=== PATIENT | male | born 1985 | race Caucasian/White ===

== ENCOUNTER 2018-09-08 17:05 | Emergency (ER) | payer MEDICAID ==
[~2018-09-08] VITALS: Ht 152.4 cm; Wt 102.1 kg
[~2018-09-08 17:05] MED LIST: ATOR10TA PO; LEVO150T8 PO; OLAN10TA3 PO; SERT25TA5 PO; WARF-68 PO
[2018-09-08] MEDS ORDERED: LORAZEPAM 1 MG TABLET PO ONE (17:30)
[2018-09-08] MEDS ORDERED: ACETAMINOPHEN 325 MG TABLET PO ONE (17:30)
[2018-09-08] MEDS ORDERED: LORAZEPAM 1 MG TABLET ONE (17:31)
[2018-09-08] MEDS ORDERED: ACETAMINOPHEN 325 MG TABLET ONE (17:32)
--- NOTE | 2018-09-08 17:32 | NUR ---
PT [place] Officer [place] [id number] on 2200 "called 911 he was going to jump into moving traffic", pt is aox4, not in respiratory distress, v/s stable.
--- NOTE | 2018-09-08 17:50 | NUR ---
Ms. Davis PA at bedside for eval.
[2018-09-08 18:15] LABS: BASOPHILS # (AUTO) 0.1 /CMM (0.0-0.2); BASOPHILS % (AUTO) 1.6 % (0.0-2.0); EOSINOPHILS % (AUTO) 4.9 % (0.0-6.0); HEMATOCRIT 29 % (39-51); HEMOGLOBIN 9.9 g/dL (13.5-17.5); LYMPHOCYTES # (AUTO) 1.1 /CMM (0.8-4.8); LYMPHOCYTES % (AUTO) 19.5 % (20.0-44.0); MEAN CORPUSCULAR HGB CONC 34 g/dl (31.0-36.0); MEAN CORPUSCULAR VOLUME 88 fL (80-96); MONOCYTES # (AUTO) 0.5 /CMM (0.1-1.30); MONOCYTES % (AUTO) 8.9 % (2.0-12.0); NEUTROPHILS # (AUTO) 3.6 /CMM (1.8-8.9); NEUTROPHILS % (AUTO) 65.1 % (43.0-81.0); PLATELET COUNT (AUTO) 159 /CMM (150-450); RED BLOOD CELL COUNT(AUTO) 3.35 MIL/uL (4.5-6.0); WHITE BLOOD COUNT (AUTO) 5.6 K/uL (4.3-11.0)
[2018-09-08 18:24] LABS: POTASSIUM 4.5 mmol/L (3.5-5.1)
[2018-09-08 18:51] LABS: APPEARANCE,URINE Clear (CLEAR); BILIRUBIN,URINE Negative (NEGATIVE); BLOOD, URINE Trace-intact Ery/uL (NEGATIVE); COLOR,URINE Yellow (YELLOW); KETONES,URINE Negative (NEGATIVE); LEUKOCYTE ESTERASE ,URINE Negative (NEGATIVE); NITRITE, URINE Negative (NEGATIVE); PH,URINE 5.5 (5.0-8.0); PROTEIN,URINE Negative (NEGATIVE); UGLUCOSE Negative (NEGATIVE); UROBILINOGEN,URINE 0.2 EU/dL (0.2)
[2018-09-08 19:00] LABS: BACTERIA,URINE None seen /HPF (None Seen); RBC,URINE 2-3/HPF /HPF (0-2); SQUAMOUS EPITHELIAL CELL,UR Rare /HPF (None Seen); URINE AMORPHOUS URATE Few /HPF (None Seen); WBC,URINE 0-2 /HPF (0-3)
--- NOTE | 2018-09-08 19:31 | NUR ---
ENDORSED TO [facility] FOR SARITHA, V/S STABLE, NOT IN RESPIRATORY DISTRESS.
[2018-09-08 20:29] LABS: ACETAMINOPHEN < 0 ug/ml (10-30); ALANINE AMINOTRANSFERASE 42 U/L (12-78); ALBUMIN 3.5 g/dL (3.4-5.0); ALCOHOL, BLOOD < 3 mg/dL (0-0); ALKALINE PHOSPHATASE 68 U/L (46-116); ASPARTATE AMINOTRANSFERASE 41 U/L (15-37); BILIRUBIN,TOTAL 0.1 mg/dL (0.2-1.0); SALICYLATE 0.9 mg/dL (2.8-20.0); TOTAL PROTEIN, SERUM 7.3 g/dL (6.4-8.2)
[2018-09-08] MEDS ORDERED: ENOXAPARIN SODIUM 60 MG/0.6 ML DISP.SYRIN SQ ONE ×2 (20:58→21:00)
[2018-09-08] MEDS ORDERED: ENOXAPARIN SODIUM 40 MG/0.4 ML DISP.SYRIN SQ ONE (20:58)
[2018-09-08 21:12] LABS: VALPROIC ACID 20 ug/mL (50-100)
--- NOTE | 2018-09-09 01:21 | NUR ---
PT ACCEPTED TO [facility]. # FOR REPORT [phone]. DR PUGA.
--- NOTE | 2018-09-09 01:32 | NUR ---
[facility] CALLED FOR TRANSPORT. ETA [id number] TRIP#[id number]
[2018-09-09 03:32] VITALS: BP 130/71
--- NOTE | 2018-09-09 03:33 | NUR ---
REPORT GIVEN TO SALONI
--- NOTE | 2018-09-09 03:39 | NUR ---
REPORT GIVEN TO EMT FOR TRANSFER
== END 2018-09-09 03:41 ==
LOC: ER 17:07
DX: R45.851 Suicidal ideations (principal); F31.9 Bipolar disorder, unspecified; E03.9 Hypothyroidism, unspecified; I38 Endocarditis, valve unspecified; G40.909 Epilepsy, unspecified, not intractable, without status epilepticus; F17.200 Nicotine dependence, unspecified, uncomplicated; R07.89 Other chest pain; I25.2 Old myocardial infarction; I10 Essential (primary) hypertension; E11.9 Type 2 diabetes mellitus without complications; Z98.890 Other specified postprocedural states; Z88.6 Allergy status to analgesic agent; Z79.899 Other long term (current) drug therapy; Z79.01 Long term (current) use of anticoagulants
CPT/HCPCS: 36415; 71045-TC; 80048-TC; 80076-TC; 80164-TC; 80305; 81000-TC; 84484-TC; 85025-TC; 85730-TC; A4606; G0480; J1650; Z7610

== ENCOUNTER 2019-06-22 22:13 | Inpatient (IN) | payer MEDICAID ==
[~2019-06-22] VITALS: Ht 175.3 cm; Wt 83.5 kg
[2019-06-22 22:15] VITALS: BP 126/75
--- NOTE | 2019-06-22 22:30 | NUR ---
ADMISSION NOTE. PATIENT DIRECT ADMISSION FROM [facility]. FOR CP UNDER DR. RIVERA. PATIENT SEEN. PATIENT HAS HX OF HOMELESSNESS BUT IS DRESSED IN BOWLER SHIRT AND VILLA ;PANTS AND APPEARS CLEAN. PATIENT REPORTS STILL HAVING SOME CP IN MID STERNUM THAT RADIATES TO LEFT ARM. PATIENT ASKING FOR DOSE OF MORPHINE. PATIENT REPORTS PAIN BUT IS AMBULATING AND HAS NO FACIAL GRIMACING OR DISTRESS WITH AMBULATION, ADL. RATES CP 6/10. PATIENT REPORTS HE HASNT TAKEN HIS SEIZURE MEDICATION FOR ONE MONTH NOW. ALSO STATES HE HAS NOT HAD HIS COUMADIN IN A WHILE FOR HOME MEDICATIONS. ADMISSION INTERVIEW CONDUCTED PATIENT PLACED ON TELEMETRY SR WITH BBB. DR. RIVERA ON HIS WAY TO SEE PATIENT AT THE BEDSIDE.
[2019-06-22] MEDS ORDERED: LEVO175T7 PO (22:59)
[2019-06-22] MEDS ORDERED: BENA20TA9 PO (22:59)
[2019-06-22] MEDS ORDERED: WARF5TAB77 PO (22:59)
[2019-06-22] MEDS ORDERED: METO25TA6 PO (22:59)
[2019-06-22] MEDS ORDERED: MORPHINE SULFATE INJ 2 MG/ML DISP.SYRIN IM PRN (23:30)
[2019-06-23] MEDS ORDERED: MAGNESIUM HYDROXIDE 30 ML UDC PO PRN (00:30)
[2019-06-23] MEDS ORDERED: ACETAMINOPHEN 325 MG TABLET PO PRN (00:30)
[2019-06-23] MEDS ORDERED: Z GUARD REMEDY 2 OZ OINT TP PRN (00:30)
[2019-06-23] MEDS ORDERED: MAG HYDROX/AL HYDROX/SIMETH 30 ML UDC PO PRN (00:30)
[2019-06-23] MEDS ORDERED: HYDROCODONE/APAP 5/325MG 1 EACH TABLET PO PRN (00:30)
[2019-06-23] MEDS ORDERED: ONDANSETRON HCL/PF 4 MG/2 ML VIAL IVP PRN (00:30)
--- NOTE | 2019-06-23 00:41 | NUR ---
patient refused troponin blood draw. patient refusing trop blood draw. states "I Just got here. I don't want to have that done right now. they can do it in the am." certified dialysis technician states he will reschedule for am.
[2019-06-23 00:45] VITALS: BP 128/70
[2019-06-23] MEDS ORDERED: ENOXAPARIN SODIUM 40 MG/0.4 ML DISP.SYRIN SQ ONE (01:00)
[2019-06-23] MEDS ORDERED: ENOXAPARIN SODIUM 80 MG/0.8 ML DISP.SYRIN SQ ONE (01:00)
--- NOTE | 2019-06-23 06:00 | NUR ---
REFUSED AM LABS. LAB TECHNICIAION REPORTS PATIENT REFUSING MORNIGN BLOOD DRAW. STATES PATIENT STATED" I AM TRYING TO SLEEP COME BACK LATER."
[2019-06-23] MEDS ORDERED: LEVOTHYROXINE SODIUM 175 MCG TABLET PO SCH (07:30)
--- NOTE | 2019-06-23 07:35 | NUR ---
Tele/RN - Assessment Patient in bed awake, A/O x 4, tele shows SR with BBB, no complaints overnight, afebrile, denies chest pain, stable on room air, no c/o shortness of breath. Saline lock on the left hand is patent and intact with no signs of infiltration. Skin is intact, ambulates with steady gait. Labs pending result. Will continue with current medical management.
--- NOTE | 2019-06-23 08:00 | NUR ---
Tele/RN - Notes Patient refused blood draw to be done. Explained the importance but still refused.
[2019-06-23 08:01] VITALS: BP 116/68
[2019-06-23 08:05] VITALS: BP 116/68
[2019-06-23] MEDS ORDERED: SERTRALINE HCL 25 MG TABLET PO SCH (09:00)
[2019-06-23] MEDS ORDERED: METOPROLOL TARTRATE 25 MG TABLET PO SCH (09:00)
[2019-06-23] MEDS ORDERED: BENAZEPRIL HCL 20 MG TABLET PO SCH (09:00)
--- NOTE | 2019-06-23 11:00 | NUR ---
MS/RN - Notes Patient non compliant with care, refusing blood draw, hospitalist Greyson Santos NP made aware.
--- NOTE | 2019-06-23 11:25 | NUR ---
Social service consult requested by Dr. Santos for homelessness. Pt. is a 33 year old male who came to [facility] complaining of chest pain. GEORGI met with pt. bedside. Pt. is alert and oriented x 4. Pt. appeared clean and well groomed. Pt. states he is homeless and has been since age 25. Pt. states all his family is . Pt. has been staying on the streets and going from one hospital to another. GEORGI offered pt. half-way placement and pt.agreed. GEORGI contacted [facility] and spoke to Zhane in Men's division who informed GEORGI they do have beds available for tonight and to have pt. come there between 1:30-3: 30PM. Pt. agreed to go. GEORGI gave him the address to [facility] located at [address], [place] [address]. Pt. 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 GEORGI printed out bus route directions from [facility] To [facility] to [facility] and gave it to the pt. Pt. denies any drug use and alcohol use. Pt. states he uses a vape. Pt. has a psychiatric diagnosis of Bipolar, Schizophrenia, PTSD and Depression. Pt. denies suicidal and homicidal ideations and visual/auditory hallucinations. Pt. receives approximately $1008/month in SSI. Pt. states he is connected with [facility] for housing.His classification case manager is Jet Shah. GEORGI called Jet for the pt. . Pt.spoke with Jet who informed him he will meet the pt. tomorrow at [facility]. Pt. will be provided with a TAP card. Pt. was also provided with the following homeless resources: [facility] located at [address] ; [facility], [address], [place] ; [facility], [address], [place] ; [facility] Homeless Resource Directory which includes food stamps, transitional housing, showers and hot meals etc; Mental Health clinics such as [facility] ; [facility] ; Health clinics;[facility] and Alcohol treatment centers such as [facility], ; [facility] Substance [facility] Hotline and [facility] . Homeless patient waiver form to be signed by the pt. upon discharge. SW placed homeless waiver form in pt's chart. [facility] has been updated with pt's discharge plan.
--- NOTE | 2019-06-23 11:30 | NUR ---
MS/RN - Notes Hospitalist Greyson Santos, MID LEVEL GAME DESIGNER with order to give Coumadin 5 mg prior to discharge, refer to [facility] for INR level yesterday 1.2 since he is refusing blood draw to be done here.
[2019-06-23] MEDS ORDERED: WARFARIN SODIUM 5 MG TABLET PO SCH (12:00)
--- NOTE | 2019-06-23 12:15 | NUR ---
MS/RN - Discharge Patient is alert and oriented x 4, discharged to assisted in stable condition, remain afebrile, denies chest pain, not in any form of distress, ambulatory with steady gait, denies SI/HI at this time. Reviewed discharge instructions with patient and he verbalized full understanding of all teachings including medications and follow up with PCP and hay buckler in one week, see Coumadin clinic for Coumadin management. Seek immediate medical attention for worsening symptoms, chest pain, shortness of breath, palpitations, abdominal pain or distention, intractable nausea and vomiting, diarrhea, hematochezia, melena, weakness, loss of consciousness, neurological deficit, or any other emergent concerns. All belongings with patient and he deny any missing items. Patient refused photos to be taken of skin, no breakdown. Saline lock removed on the left hand with catheter tip intact, no redness, no swelling noted at the site. Patient signed discharge paperwork and homeless waiver form and copies were given per protocol. Accompanied to the lobby and TAP card was provided to the patient.
[2019-06-23] MEDS ORDERED: WARFARIN SODIUM 2 MG TABLET PO SCH (17:00)
[2019-06-23] MEDS ORDERED: OLANZAPINE 10 MG TABLET PO SCH (18:00)
[2019-06-23] MEDS ORDERED: ATORVASTATIN 10 MG TABLET PO SCH (18:00)
--- NOTE | 2019-06-26 11:39 | NUR ---
CALL BACK NOTE NUMBER LISTED IS "[phone]" AND DOES NOT WORK
== END 2019-06-23 12:20 | disposition home or self-care (01) | DRG 861 ==
LOC: TELE 22:13 → MED 06-23 10:36
PROVIDERS: ADMIT Internal Medicine; ATTEND Nurse Practitioner Acute Care
DX: Z76.5 Malingerer [conscious simulation] (principal); D63.8 Anemia in other chronic diseases classified elsewhere; E03.9 Hypothyroidism, unspecified; E11.9 Type 2 diabetes mellitus without complications; F11.21 Opioid dependence, in remission; I10 Essential (primary) hypertension; Z86.718 Personal history of other venous thrombosis and embolism; Z95.2 Presence of prosthetic heart valve; G31.84 Mild cognitive impairment of uncertain or unknown etiology; Z59.0 Homelessness; Z79.01 Long term (current) use of anticoagulants
CPT/HCPCS: G0378; J1650; J2270

== ENCOUNTER 2024-07-25 22:16 | Inpatient (IN) | payer MEDICAID ==
[~2024-07-25] VITALS: Ht 175.3 cm; Wt 92.5 kg
[~2024-07-25 22:16] MED LIST changes: +BENA20TA9 PO; -LEVO150T8 PO; +LEVO175T7 PO; +METO25TA6 PO; -WARF-68 PO; +WARF5TAB PO
[2024-07-25] MEDS: NITROGLYCERIN 0.4 MG/TAB BOTTLE SL ONE (22:42)
[2024-07-25] MEDS ORDERED: KETOROLAC TROMETHAMINE 15 MG/ML VIAL ONE (23:28)
[2024-07-25] MEDS: KETOROLAC TROMETHAMINE 15 MG/ML VIAL IV ONE (23:33)
[2024-07-25 23:35] LABS: EOSINOPHILS # (AUTO) 0.3 K/uL (0.0-0.7); EOSINOPHILS % (AUTO) 5.8 % (0.0-6.0); HEMATOCRIT 33 % (39-51); HEMOGLOBIN 11.4 g/dL (13.5-17.5); LYMPHOCYTES % (AUTO) 22.1 % (20.0-44.0); MEAN CORPUSCULAR HEMOGLOBIN 31 PG (26.0-33.0); MEAN CORPUSCULAR HGB CONC 35 g/dl (31.0-36.0); MEAN CORPUSCULAR VOLUME 89 fL (80-96); MONOCYTES # (AUTO) 0.6 K/uL (0.1-1.30); MONOCYTES % (AUTO) 12.3 % (2.0-12.0); NEUTROPHILS # (AUTO) 2.8 K/uL (1.8-8.9); NEUTROPHILS % (AUTO) 58.8 % (43.0-81.0); PLATELET COUNT (AUTO) 123 K/uL (150-450); RED CELL DISTRIBUTION WIDTH 14.9 % (11.5-15.0); WHITE BLOOD COUNT (AUTO) 4.8 K/uL (4.3-11.0)
[2024-07-25 23:45] LABS: CALCIUM, SERUM 8.7 mg/dL (8.5-10.1); CARBON DIOXIDE 30 mmol/L (21-32); CHLORIDE 107 mmol/L (98-107); CREATININE 1.2 mg/dL (0.6-1.3); GLUCOSE 80 mg/dL (74-106); POTASSIUM 3.7 mmol/L (3.5-5.1); SODIUM SERUM 144 mmol/L (136-145); UREA NITROGEN, BLOOD 17 mg/dL (7-18)
[2024-07-25 23:58] LABS: NT-PRO BNP 1030 pg/mL (0-125)
[2024-07-26 00:45] VITALS: BP 150/99; TEMP 98.1; O2SAT 98
[2024-07-26 00:49] VITALS: BP 150/99; TEMP 98.1; O2SAT 98
[2024-07-26] MEDS ORDERED: ONDANSETRON HCL/PF 4 MG/2 ML VIAL IV PRN (01:00)
[2024-07-26] MEDS ORDERED: APIX5TAB PO (01:06)
[2024-07-26] MEDS: MORPHINE SULFATE INJ 4 MG/ML DISP.SYRIN IV PRN (01:15)
[2024-07-26] MEDS: LEVOTHYROXINE SODIUM 175 MCG TABLET PO SCH (07:47)
[2024-07-26 08:00] VITALS: BP 148/78; TEMP 98.1; O2SAT 96
[2024-07-26] MEDS: METOPROLOL TARTRATE 25 MG TABLET PO SCH (08:52)
[2024-07-26] MEDS: BENAZEPRIL HCL 20 MG TABLET PO SCH (08:53)
[2024-07-26] MEDS: APIXABAN 5 MG TABLET PO SCH (08:55)
[2024-07-26] MEDS: SERTRALINE HCL 25 MG TABLET PO SCH (08:56)
[2024-07-26] MEDS ORDERED: ALBU18HF2 IH (09:03)
[2024-07-26] MEDS ORDERED: MIRT-121 PO (09:03)
[2024-07-26] MEDS ORDERED: BUPR1FIL3 SL (09:03)
[2024-07-26] MEDS ORDERED: IPRA4AER INH (09:03)
[2024-07-26 12:00] VITALS: BP 130/70; TEMP 98.2; O2SAT 98
[2024-07-26 13:38] LABS: BASOPHILS % (AUTO) 0.9 % (0.0-2.0); EOSINOPHILS # (AUTO) 0.3 K/uL (0.0-0.7); EOSINOPHILS % (AUTO) 8.7 % (0.0-6.0); HEMATOCRIT 30 % (39-51); HEMOGLOBIN 10.6 g/dL (13.5-17.5); LYMPHOCYTES # (AUTO) 0.9 K/uL (0.8-4.8); LYMPHOCYTES % (AUTO) 23.1 % (20.0-44.0); MEAN CORPUSCULAR HEMOGLOBIN 32 PG (26.0-33.0); MEAN CORPUSCULAR HGB CONC 35 g/dl (31.0-36.0); MEAN CORPUSCULAR VOLUME 89 fL (80-96); MONOCYTES # (AUTO) 0.5 K/uL (0.1-1.30); NEUTROPHILS # (AUTO) 2.2 K/uL (1.8-8.9); NEUTROPHILS % (AUTO) 55.3 % (43.0-81.0); PLATELET COUNT (AUTO) 110 K/uL (150-450); RED BLOOD CELL COUNT(AUTO) 3.36 MIL/uL (4.5-6.0); RED CELL DISTRIBUTION WIDTH 14.8 % (11.5-15.0)
[2024-07-26 13:55] LABS: CALCIUM, SERUM 8.8 mg/dL (8.5-10.1); CREATININE 1.2 mg/dL (0.6-1.3); MAGNESIUM 1.7 mg/dL (1.8-2.4); PHOSPHORUS 4.6 mg/dL (2.5-4.9); POTASSIUM 4.1 mmol/L (3.5-5.1)
[2024-07-26 15:53] VITALS: BP 131/82; TEMP 98.1; O2SAT 96
[2024-07-26] MEDS ORDERED: SUBOXONE XX SCH (17:00)
[2024-07-26] MEDS: OLANZAPINE 10 MG TABLET PO SCH (17:31)
[2024-07-26] MEDS: ATORVASTATIN 10 MG TABLET PO SCH (17:31)
[2024-07-26 17:52] LABS: AMPHETAMINE, URINE NEGATIVE (NEGATIVE); BARBITURATE, URINE NEGATIVE (NEGATIVE); BENZODIAZEPINE, URINE NEGATIVE (NEGATIVE); CANNABINOID, URINE NEGATIVE (NEGATIVE); COCCAINE, URINE NEGATIVE (NEGATIVE); PHENCYCLIDINE SCREEN,URINE NEGATIVE (NEGATIVE)
[2024-07-26 18:09] LABS: OPIATE, URINE POSITIVE (NEGATIVE)
[2024-07-26 20:15] VITALS: BP 127/91; TEMP 98.1; O2SAT 97
[2024-07-26] MEDS: MIRTAZAPINE 15 MG TABLET PO SCH (23:07)
[2024-07-27 00:01] VITALS: BP 120/86; TEMP 98.2; O2SAT 95
[2024-07-27 10:04] VITALS: BP 129/84; TEMP 98.4; O2SAT 96
[2024-07-27] MEDS: METOPROLOL TARTRATE 50 MG TABLET PO SCH (11:46)
[2024-07-27] MEDS ORDERED: CT SWABBABLE VALVE TRANS SET 1 EA INFUS.SET MC ONE (13:11)
[2024-07-27] MEDS ORDERED: METOPROLOL TARTRATE INJ 5 MG/5 ML AMPUL ONE (13:11)
[2024-07-27] MEDS ORDERED: IV NS 0.9% 250 ML IV ONE (13:11)
[2024-07-27] MEDS ORDERED: NITROGLYCERIN 0.4 MG/TAB BOTTLE ONE (13:11)
[2024-07-27] MEDS ORDERED: IOHEXOL-350 100 ML VIAL IV ONE (13:11)
[2024-07-27] MEDS ORDERED: METOPROLOL TARTRATE INJ 5 MG/5 ML AMPUL IVP PRN (13:15)
[2024-07-27 16:00] VITALS: BP 117/77; TEMP 98.1; O2SAT 97
[2024-07-28 08:00] VITALS: BP 119/80; TEMP 97.9; O2SAT 100
[2024-07-28 09:04] LABS: BASOPHILS % (AUTO) 0.8 % (0.0-2.0); EOSINOPHILS # (AUTO) 0.4 K/uL (0.0-0.7); EOSINOPHILS % (AUTO) 10.5 % (0.0-6.0); HEMATOCRIT 31 % (39-51); HEMOGLOBIN 10.6 g/dL (13.5-17.5); MEAN CORPUSCULAR HEMOGLOBIN 31 PG (26.0-33.0); MEAN CORPUSCULAR HGB CONC 34 g/dl (31.0-36.0); MEAN CORPUSCULAR VOLUME 89 fL (80-96); MONOCYTES # (AUTO) 0.5 K/uL (0.1-1.30); MONOCYTES % (AUTO) 11.4 % (2.0-12.0); NEUTROPHILS # (AUTO) 2.3 K/uL (1.8-8.9); NEUTROPHILS % (AUTO) 54.3 % (43.0-81.0); PLATELET COUNT (AUTO) 114 K/uL (150-450); RED BLOOD CELL COUNT(AUTO) 3.49 MIL/uL (4.5-6.0); RED CELL DISTRIBUTION WIDTH 14.8 % (11.5-15.0); WHITE BLOOD COUNT (AUTO) 4.3 K/uL (4.3-11.0)
[2024-07-28 09:31] LABS: CALCIUM, SERUM 8.6 mg/dL (8.5-10.1); CREATININE 1.1 mg/dL (0.6-1.3)
[2024-07-28] MEDS ORDERED: HYDR-3972 PO (11:55)
[2024-07-28 12:03] VITALS: BP 119/80
== END 2024-07-28 14:00 | disposition home or self-care (01) | DRG 190 ==
LOC: ER 22:19 → TELE 07-26 00:12 → MED 07-28 09:07
PROVIDERS: ADMIT Nurse Practitioner Acute Care; ATTEND Nurse Practitioner Acute Care
DX: I21.4 Non-ST elevation (NSTEMI) myocardial infarction (principal); E11.9 Type 2 diabetes mellitus without complications; Z95.2 Presence of prosthetic heart valve; E03.9 Hypothyroidism, unspecified; I10 Essential (primary) hypertension; Z79.01 Long term (current) use of anticoagulants; E78.5 Hyperlipidemia, unspecified; F41.9 Anxiety disorder, unspecified; F43.10 Post-traumatic stress disorder, unspecified; I25.10 Atherosclerotic heart disease of native coronary artery without angina pectoris; I25.2 Old myocardial infarction; Z86.73 Personal history of transient ischemic attack (TIA), and cerebral infarction without residual deficits; F20.9 Schizophrenia, unspecified; F90.9 Attention-deficit hyperactivity disorder, unspecified type; Z59.00 Homelessness unspecified; F31.9 Bipolar disorder, unspecified; S00.83XA Contusion of other part of head, initial encounter; W19.XXXA Unspecified fall, initial encounter; Y93.89 Activity, other specified; Y92.89 Other specified places as the place of occurrence of the external cause; Z87.74 Personal history of (corrected) congenital malformations of heart and circulatory system; R74.8 Abnormal levels of other serum enzymes
CPT/HCPCS: 36415; 71045-TC; 75574; 80048-TC; 83735-TC; 83880; 84100-TC; 84443-TC; 84484-TC; 85025-TC; 93307-TC; 98960; A4223; G0378; J1885; J2270; J3490; J7050; Q9967